=== PATIENT | male | born 1940 | race African-American/Black ===

== ENCOUNTER 2016-04-15 08:06 | Day surgery (SDC) | payer MEDICARE ==
[2016-04-15] MEDS ORDERED: TETRACAINE 0.5% OD ONE (08:43)
--- NOTE | 2016-04-15 09:13 | Anesthesia Consultation ---
Anesthesia Consult and Med Hx Date of service: 04/15/16 - Airway Anesthetic Teeth Evaluation: Good (TOP IMPLANT?) ROM Head & Neck: Adequate Mental/Hyoid Distance: Adequate Mallampati Class: Class II Intubation Access Assessment: Probably Good - Pulmonary Exam CTA: Yes - Cardiac Exam Cardiac Exam: RRR - Pre-Operative Health Status ASA Pre-Surgery Classification: ASA3 Proposed Anesthetic Plan: MAC - Pulmonary Hx Smoking: No Hx Asthma: No Hx Sleep Apnea: No - Cardiovascular System Hx Hypertension: Yes (3-4 yrs) Hx Coronary Artery Disease: No - Central Nervous System Hx Seizures: No CVA: No Hx Psychiatric Problems: No - Gastrointestinal Hx Gastroesophageal Reflux Disease: Yes - Endocrine Hx Renal Disease: No Hx Liver Disease: No Hx Insulin Dependent Diabetes: No Hx Non-Insulin Dependent Diabetes: Yes - Other Systems Hx Cancer: No
--- NOTE | 2016-04-15 09:13 | Anesthesia Day of Surgery ---
Anesthesia Day of Surgery - Day of Surgery Patient Examined: Yes Patient H&P Reviewed: Yes Patient is NPO: Yes
[2016-04-15] MEDS: VIGAMOX OD SCH ×3 (09:43→09:58)
[2016-04-15] MEDS ORDERED: mitoMYcin 0.02% Opth Soln *OR USE ONLY OP NR (10:00)
[2016-04-15] MEDS ORDERED: WATER FOR IRRIG STERILE IR ONE (11:48)
[2016-04-15] MEDS ORDERED: mitoMYcin 0.02% Opth Soln *OR USE ONLY OP ONE (11:48)
[2016-04-15] MEDS ORDERED: PROSHIELD COLLAGEN CORNEAL SHIELD TP ONE (11:48)
[2016-04-15] MEDS ORDERED: XYLOCAINE 1%/ EPI 1:100,000 INFILTRATI ONE (11:48)
[2016-04-15] MEDS ORDERED: SUBLIMAZE ONE (11:51)
[2016-04-15] MEDS ORDERED: VERSED ONE (11:52)
--- NOTE | 2016-04-15 12:26 | Operative Report ---
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 The risks, benefits and alternatives of cataract surgery were explained to the patient who after confirmining understanding elected to proceed with surgery. The risks discussed included but were not limited to retinal detachement, infection, problems with the natural or artificial lens leading to further surgery, loss of vision, loss of the eye. The patient had multiple opportunities to ask questions and have them answered. A preoperative instruction sheet was provided and explained to the patient and/or family. PROGNOSIS: Excellent INDICATIONS FOR SURGERY: Distortion of vision from the lesion. Without treatment , permanent visual loss is expected. OPERATIVE REPORT: The patient was taken into the preoperative area and then sedated and monitored by Anesthesia. The patient was prepped by applying a Betadine scrub to the periorbital area, the adjacent cheek, and the forehead. The prepped areas were dried with sterile gauze. The patient was draped, and a speculum was placed between the eyelids. 2% lidocaine was injected below the harlan of the pterygium. A cut-down was made through the body of the pterygium to bare sclera. The dissection was then carried towards the limbus, elevating up the pterygium. Moderate bleeding was encountered and treated with cautery. Once the dissection was taken to the limbus, the head of the pterygium was dissected off the cornea with a Tooke knife. The pterygium was densely scarred into the underlying stroma, making the dissection process difficult to perform. A superficial dissection plane was made in a few areas. The mass of fibrous growth was then excised from the limbus. A barbra bur on a high-speed drill was used to smooth the area of the cornea where the pterygium was removed. This was done in order to leave the tissue smooth and minimize the chance of recurrence. A rough limbal surface increases the risks of irritation, inflammation, and the possibility of postoperative recurrence in the eye. The limbal area was smoothed with the barbra bur, and care was taken not to remove too much tissue, leaving the cornea ectatic. After the scar tissue was removed, Mitomycin-C was painted on the eye with Weck- marvin sponges and immediately irrigated off after 60secs. The irrigation was done liberally to prevent any Mitomycin-C contamination to the rest of the field and the eye. The cornea was irrigated with balanced salt solution. Once the pterygium was excised and the cornea smoothed, cautery was used to control any bleeding in the bed of bare sclera. The peripheral edges of remaining conjunctiva around the bare sclera had its edges undermined slightly to allow it to be fixed to the underlying sclera when the tissue adhesive would be applied. Calipers were then used to measure the width and length of the area of bare sclera. After marking the tips of the calipers, they were used to dajuan the amniotic graft. Scissors were next used to first undermine and then excise the graft. Fine-tooth forceps were used carefully to elevate the graft and moved to the area of the bare sclera. It was moved carefully to make sure that first of all the epithelial side remained upward . After the graft was found to be suitable for the area to be covered, it was temporarily moved off the bare sclera and Tisseel tissue adhesive was applied in its two components as separate stages over the area of bare sclera. The graft was placed back in position and its edges were first pushed down 360 to allow firm fixation. The central area was also pushed down with firm pressure from a flat surfaced instrument. Next the edges of the previously undermined adjacent conjunctiva were pushed down to allow firm fixation. The flap was allowed to stay unmanipulated for ten minutes prior to removing the lid speculum. MEDICATIONS APPLIED AT END OF SURGERY: TobraDex ointment was placed onto the eye fallowed by the application of a bandage contact lens. DISCHARGE SUMMARY: The patient was released in stable condition. The patient and those with the patient were given a written sheet of postoperative instructions and counseling on any abnormal laboratory studies. They are to call immediately for difficulties.
--- NOTE | 2016-04-15 12:27 | Short Stay Summary ---
Short Stay Documentation Date of service: 04/15/16 - History H&P: obtained from office - Allergies and Medications Current Medications: Allergies No Known Allergies Allergy (Verified 04/15/16 08:44) Home Medications Medication Instructions Recorded Confirmed Last Taken Type Amlodipine Besylate [Amlodipine 5 mg PO DAILY 04/13/16 04/13/16 Unknown History Besylate] Gabapentin [Gabapentin] 300 mg PO PRN PRN 04/13/16 04/13/16 Unknown History Lisinopril/Hydrochlorothiazide 1 tab PO QDAY 04/13/16 04/13/16 Unknown History [Zestoretic 20-25 mg] Metformin HCl [Metformin HCl] 850 mg PO PRN PRN 04/13/16 04/15/16 2 Days Ago History Omeprazole (Nf) [PriLOSEC (Nf)] 20 mg PO DAILY 04/13/16 04/13/16 Unknown History Active Medications Moxifloxacin HCl (Vigamox) 1 drops OD Q5MIN LORRIE Stop: 04/17/16 09:01 Last Admin: 04/15/16 09:58 Dose: 1 drops Prednisolone Acetate (Pred Forte 1%) 1 drops OD QID LORRIE - Brief post op/procedure progress note Date of procedure: 04/15/16 Pre-op diagnosis: pterygium right eye Post-op diagnosis: same Procedure: Pterygium surgery right eye Anesthesia: MAC Surgeon: YESICA MIRANDA Estimated blood loss: none Pathology: none Condition: stable - Disposition Condition at discharge: Good Disposition: DISCHARGED TO HOME OR SELFCARE - Discharge Diagnoses (1) Pterygium of right eye Status: Resolved Short Stay Discharge Plan Follow up with: SUJATA MANJARREZ MD [Primary Care Provider] - 7 Days
[2016-04-15 12:53] VITALS: BP 155/73
--- NOTE | 2016-04-15 13:57 | Post Anesthesia Evaluation ---
- Post Anesthesia Evaluation Patient Participated: Yes Airway Patent: Yes Stable Respiratory Function: Yes Nausea/Vomiting: No Temp > 96.8F: Yes Pain Manageable: Yes Adequeate Hydration: Yes Anesthesia Complications: No Block Receding Appropriately: Not Applicable Patient on Ventilator: No
[2016-04-15] MEDS ORDERED: PRED FORTE 1% OD SCH (14:00)
--- NOTE | 2016-04-15 23:54 | Admit Criteria Form ---
Admission Criteria Documentation: AMBULATORY SURGERY EXCEPTION CRITERIA Ambulatory Surgery Exception Criteria ( Place 'X' for any and all applicable criteria): Surgery or procedure performed on ambulatory basis may require inpatient stay for[A] ANY ONE of the following(1)(2)(3)(4)(5)(6)(7)(8)(9): [X] I. A preoperative situation, condition, or finding that warrants inpatient stay as indicated by ANY ONE of the following: [] a) Inpatient care needed because of severity of a disease or condition rather than the surgery (eg, severe cardiac or respiratory disease, severe infection) (15) (16 ) (17) (18) [] b) Emergent procedure (eg, angioplasty for acute ischemia)(19) [] c) Complex surgical approach or situation as indicated by ANY ONE of the following(3): [] i) Open approach needed instead of usual endoscopic, transcatheter, or other less invasive procedure [] ii) Difficult approach because of previous operation [] iii) Airway monitoring required after open neck procedures(20)(21) [] iv) Large mass requiring unusually extensive dissection [] v) Additional complicating feature requiring inpatient care (eg, drain management)(22(23): [X] d) Major surgery in a pt with high anesthetic risk as indicated by ANY ONE of the following (2)(3)(5)(7)(8): [X] i) ASA risk class III or higher (severe systemic disease impairing function) [D] [] ii) Advanced age (eg, older than 85 years)(14)(24) [] iii) Symptomatic heart failure(25) [] iv) Symptomatic asthma or COPD(8)(21) [] v) Morbid obesity with hemodynamic or respiratory problems(20)( 21)(26)(27) [] vi) Obstructive sleep apnea(20)(21) [] vii) Former premature infants who are younger than 60 weeks [] viii) High risk for severe postoperative abnormalities (eg, severe postoperative hypocalcemia after parathyroidectomy for severe hyperparathyroidism)(27)( 28) [] ix) Unstable angina(25) [] e) Drug-related risk requiring inpatient stay as indicated by ANY ONE of the following(5)(10)(14)(32)(33) [] i) Procedure requires discontinuing drugs or other therapy (eg , antiarrhythmic medication, antiseizure medication), which necessitates inpatient observation or treatment.(18)(31) [] ii) Major surgery and high risk drug use as indicated by ANY ONE of the following: [] 1) Active abuse of cocaine or similar drug [] 2) Monoamine oxidase inhibitor use [] 3) Other drug identified as posing risk [] f) Inadequate outpatient care situation as indicated by ANY ONE of the following(5)(10)(14)(32)(33) [] i) Patient lives remote from medical facility and procedure has urgent complication potential, and temporary nearby residence cannot be arranged [] ii) Patient will have postprocedure incapacitation and inadequate assistance at home, or alternative level of care cannot be arranged. [] iii) Patient will have long general anesthesia or procedure side effect resolution time, and competent person to stay with patient on first postoperative night at home or alternative level of care cannot be arranged. []iv) Other inadequate outpatient situation that cannot be handled by other means [] II. A perioperative event, condition, or finding that warrants inpatient stay as indicated by ANY ONE of the following (1)(2)(3): [] a) Inadequate physiologic recovery: cardiovascular, respiratory, or hemodynamic status not normal or near preoperative baseline(18) [] b) Hemodynamic instability [] c) Patient not alert with near normal or baseline mental status [] d) Temperature not normal or as expected and not appropriate for outpatient treatment of condition [] e) Ambulatory or appropriate activity level status not yet achieved post procedure [E](34)(35)(36) [] f) Operative site not appropriate (eg, unexpected or excessive drainage or bleeding) [] g) Postoperative effects not resolved or adequately managed (eg, significant pain or vomiting not appropriate for outpatient or next level of care)(10)(12) [] h) Complicating features requiring inpatient care as indicated by ANY ONE of the following(37): [] i) Severe complications of procedure (eg, bowel injury, airway compromise, vascular injury,severe hemorrhage) [] ii) Extensive (eg, dissection far beyond usual scope of procedure ) or prolonged (eg, 120 minutes beyond usual) surgery needed requiring inpatient postoperative care [] iii) Conversion to an open or complex procedure that requires inpatient care (eg, open vs laparoscopic cholecystectomy, abdominal vs vaginal hysterectomy)(38) [] iv) Comorbid condition or test result identified during or post procedure that requires inpatient care (7) [] v) Malignant hyperthermia(30) [] vi) Other complicating feature requiring inpatient care(22)(23) Inpatient stay may be needed until ALL of the following are present (1)(2)(3)(4) (5)(6)(10)(14)(33)(40): []a) Physiologic recovery: cardiovascular, respiratory, and hemodynamic status normal or near preoperative baseline []b) Hemodynamic stability []c) Patient alert, with near normal or baseline mental status []d) Temperature appropriate: patient afebrile or temperature appropriate for outpt treatment of condition []e) Activity level appropriate: ambulatory or appropriate activity level post procedure []f) Operative site appropriate as indicated by ALL of the following: []i) Site dry or with expected drainage []ii) Any blood noted is as expected for procedure. []g) Postoperative effects resolved or managed as indicated by ALL of the following: []i) Pain management appropriate for outpatient (or next level of) care(10) []ii) Minimal nausea and vomiting: if present, successfully treated with oral medication(12) []iii) Headache, dizziness, or drowsiness (if present) are mild. []h) Voiding status acceptable as indicated by ANY ONE of the following: []i) Voiding spontaneously []ii) No voiding but instructions given for follow-up in 6 to 8 hours []iii) Urinary catheter in place, and instructions given for follow-up []i) Complicating features requiring inpatient care manageable at a lower level of care(37) []j) Comorbid conditions manageable at a lower level of care(37) The original [employer] content created by [employer] has been revised. The portions of the content which have been revised are identified through the use of italic text or in bold, and [facility] [employer] has neither reviewed nor approved the modified material. All other unmodified content is copyright [employer]. Please see references footnoted in the original [employer] edition 2016 Admission Criteria Met: Yes
== END 2016-04-15 12:56 | disposition home or self-care (01) ==
LOC: OR 08:06
DX: H11.001 Unspecified pterygium of right eye (principal); E11.9 Type 2 diabetes mellitus without complications; I10 Essential (primary) hypertension; K21.9 Gastro-esophageal reflux disease without esophagitis; Z79.899 Other long term (current) drug therapy
CPT/HCPCS: 65426; 82962; 88304; C9250; J2250; J3010; J7315; V2790

== ENCOUNTER 2016-06-03 07:03 | Day surgery (SDC) | payer MEDICARE ==
[~2016-06-03 07:03] MED LIST: TETRACAINE 0.5% OD PRN
--- NOTE | 2016-06-03 08:02 | Anesthesia Consultation ---
Anesthesia Consult and Med Hx Date of service: 06/03/16 - Airway Anesthetic Teeth Evaluation: Dentures (uppper permanent) ROM Head & Neck: Adequate Mental/Hyoid Distance: Adequate Mallampati Class: Class II Intubation Access Assessment: Probably Good - Pulmonary Exam CTA: Yes - Cardiac Exam Cardiac Exam: RRR - Pre-Operative Health Status ASA Pre-Surgery Classification: ASA3 Proposed Anesthetic Plan: MAC - Pre-Anesthesia Comment Pre-Anesthesia Comments: [place]i speaker - Pulmonary Hx Smoking: No Hx Asthma: No - Cardiovascular System Hx Hypertension: Yes (3-4 yrs) Hx Heart Attack/AMI: No - Central Nervous System Hx Neuromuscular Disorder: Yes (arthritis) Hx Seizures: No CVA: No Hx Psychiatric Problems: No - Gastrointestinal Hx Gastroesophageal Reflux Disease: Yes - Endocrine Hx Renal Disease: No Hx Liver Disease: No Hx Non-Insulin Dependent Diabetes: Yes - Other Systems Hx Cancer: No Hx Obesity: No - Additional Comments Anesthesia Medical History Comments: NAC
--- NOTE | 2016-06-03 08:02 | Anesthesia Day of Surgery ---
Anesthesia Day of Surgery - Day of Surgery Patient Examined: Yes Patient H&P Reviewed: Yes Patient is NPO: Yes
[2016-06-03] MEDS: AK-Dilate OD SCH ×3 (08:15→08:25)
[2016-06-03] MEDS: MYDRIACYL OD SCH ×3 (08:15→08:25)
[2016-06-03] MEDS: VIGAMOX OD SCH ×3 (08:15→08:25)
[2016-06-03] MEDS ORDERED: VERSED ONE (08:39)
[2016-06-03] MEDS ORDERED: SUBLIMAZE ONE (08:39)
--- NOTE | 2016-06-03 09:33 | Operative Report ---
Operative Report Operative Report: PATIENT'S NAME: DATE OF : DATE OF SURGERY: 06/03/2016 PREOPERATIVE DIAGNOSIS: Cataract right `eye POSTOPERATIVE DIAGNOSIS: Same OPERATIVE PROCEDURE: Phacoemulsification with intraocular lens implantation, right eye SURGEON: Jennie Nevarez M.D. IMPROVEMENT SPECIALIST SURGEON: Tone Lens: [id number] 21.5 D ANESTHESIA: Monitored anesthesia care in combination with topical and intracameral anesthesia because of the established specific risk of reflux, arrhythmias, or anxiety attacks associated with ocular manipulation, as well as the difficulty of the dental financial coordinator to manage such potentially catastrophic events while simultaneously attempting to complete the surgical procedure and was deemed necessary for the patient's safety to have an Heel Seat Flap Stapler present during the procedure whenever possible. An Heel Seat Flap Stapler was utilized to regulate the intravenous sedation of the patient so the patient was cooperative yet not asleep in order for the patient to successfully maintain fixation of the eye on the operating light of the microscope. COMPLICATIONS: No surgical complications No blood loss. ALLERGIES: No known drug allergies PROGNOSIS: Excellent INDICATIONS FOR SURGERY: The patient is undergoing surgery in the hopes of eliminating or improving these visual difficulties. PROCEDURE: After arriving at the surgery center, the patient was given topical anesthetic and dilating drops, as noted in the record. The patient was then taken into the operating room and given more anesthetic drops. The eyelids , lashes, and lid margins were scrubbed with Betadine solution, and the patient was draped. The Nurse Heel Seat Flap Stapler administered IV sedation and monitored the patient during the procedure. The eye was then fixated with a 0.12, and a stab incision was made in the peripheral clear cornea into the anterior chamber. This was made on my left side. Viscoelastic was next used to fill the anterior chamber. The eye was once again fixated with the 0.12 forceps and a keratome was used make an incision in clear cornea peripherally on my right hand side temporally. The capsule forceps were used to open the central anterior capsule and then make a continuous round capsulotomy. Hydrodissection was carried out utilizing a cannula and balanced salt solution to delineate the cortical material from the capsule and the nucleus from the cortical material. The phaco tip was introduced into the eye and used to remove the anterior cortical material in the area of the capsulotomy. Then the phaco tip was buried into the nucleus, and a chopping instrument was introduced into the eye and used to provide countertraction in the nucleus between this instrument and the phaco tip fracturing the nucleus. This procedure was repeated multiple times, providing multiple small segments of the lens, and then the phaco tip was used to remove each of these segments. An I/A tip was then used to remove the remaining cortex. The anterior chamber was refilled with viscoelastic. An one-piece, acrylic intraocular lens was then placed into an inserting cartridge. The tip of the inserting cartridge was introduced into the keratome incision and into the anterior chamber. The implant was gently advanced through the cartridge and into the eye, where it unfolded, and both haptics were placed in the capsular bag, where it centered nicely and appeared to be well fixated. After placement of the intraocular lens, the I~and~A handpiece was placed back into the eye and used to remove the viscoelastic, including viscoelastic that was behind the optic of the intraocular lens. The anterior chamber was then filled with balanced salt solution, and hydration of the wound was used to cause swelling of the wound and more appropriate watertight closure. When the wound was found to be firm, the patient was asked to comment on how bright the light was. If there was no light perception at all or if the light was substantially dimmer than during the rest of the surgery, the amount of fluid in the eye was decompressed to lower the intraocular pressure until the patient could see the bright light again. This was done to avoid any damage or decreased blood flow to the optic nerve. MEDICATIONS APPLIED AT END OF SURGERY: One drop of Pred Forte and Vigamox The patient was given a shield to wear at night and was instructed not to rub or push on the eye. DISCHARGE SUMMARY: The patient was released in stable condition. The patient and those with the patient were given a written sheet of postoperative instructions and counseling on any abnormal laboratory studies. The patient is to see us tomorrow for follow-up in the office and is to call immediately for any difficulties. Jennie Nevarez M.D. Date
--- NOTE | 2016-06-03 09:34 | Short Stay Summary ---
Short Stay Documentation Date of service: 06/03/16 - History H&P: obtained from office - Allergies and Medications Current Medications: Allergies No Known Allergies Allergy (Verified 06/02/16 09:40) Home Medications Medication Instructions Recorded Confirmed Last Taken Type Amlodipine Besylate [Amlodipine 5 mg PO DAILY 04/13/16 06/02/16 Unknown History Besylate] Gabapentin [Gabapentin] 300 mg PO PRN PRN 04/13/16 06/02/16 Unknown History Lisinopril/Hydrochlorothiazide 1 tab PO QDAY 04/13/16 06/02/16 Unknown History [Zestoretic 20-25 mg] Metformin HCl [Metformin HCl] 850 mg PO PRN PRN 04/13/16 06/02/16 2 Days Ago History Omeprazole (Nf) [PriLOSEC (Nf)] 20 mg PO DAILY 04/13/16 06/02/16 Unknown History Active Medications Moxifloxacin HCl (Vigamox) 1 drops OD Q5MIN LORRIE Stop: 06/03/16 18:01 Last Admin: 06/03/16 08:25 Dose: 1 drops Phenylephrine HCl (Ak-Dilate) 1 drops OD Q5MIN LORRIE Stop: 06/03/16 18:01 Last Admin: 06/03/16 08:25 Dose: 1 drops Prednisolone Acetate (Pred Forte 1%) 1 drops OD QID NR Stop: 06/03/16 13:59 Tetracaine HCl (Tetracaine 0.5%) 1 drops OD Q5M PRN PRN Reason: Analgesia Stop: 06/03/16 18:01 Last Admin: 06/03/16 08:15 Dose: 1 drops Tropicamide (Mydriacyl) 1 drops OD Q5MIN LORRIE Stop: 06/03/16 18:01 Last Admin: 06/03/16 08:25 Dose: 1 drops - Brief post op/procedure progress note Date of procedure: 06/03/16 Pre-op diagnosis: right cataract Post-op diagnosis: same Procedure: Phacoemulsification with intraocular lens insertion right eye Anesthesia: MAC Surgeon: YESICA MIRANDA Estimated blood loss: none Pathology: none Condition: stable - Disposition Condition at discharge: Good Disposition: DISCHARGED TO HOME OR SELFCARE - Discharge Diagnoses (1) Cataract Status: Resolved Short Stay Discharge Plan Follow up with: SUJATA MANJARREZ MD [Primary Care Provider] - 7 Days
[2016-06-03] MEDS ORDERED: PRED FORTE 1% OD NR (10:00)
[2016-06-03 10:03] VITALS: BP 167/92
== END 2016-06-03 10:23 | disposition home or self-care (01) ==
LOC: OR 07:03
DX: E11.36 Type 2 diabetes mellitus with diabetic cataract (principal); I10 Essential (primary) hypertension; M19.90 Unspecified osteoarthritis, unspecified site; K21.9 Gastro-esophageal reflux disease without esophagitis; Z79.899 Other long term (current) drug therapy
CPT/HCPCS: 66984; 82962; J2250; J3010; V2632

== ENCOUNTER 2016-07-01 07:41 | Day surgery (SDC) | payer MEDICARE ==
[~2016-07-01 07:41] MED LIST changes: -TETRACAINE 0.5% OD PRN; +TETRACAINE 0.5% OS PRN
--- NOTE | 2016-07-01 08:34 | Anesthesia Consultation ---
Anesthesia Consult and Med Hx Date of service: 07/01/16 - Airway Anesthetic Teeth Evaluation: Dentures (permanent ) ROM Head & Neck: Adequate Mental/Hyoid Distance: Adequate Mallampati Class: Class II Intubation Access Assessment: Probably Good - Pulmonary Exam CTA: Yes - Cardiac Exam Cardiac Exam: RRR - Pre-Operative Health Status ASA Pre-Surgery Classification: ASA3 Proposed Anesthetic Plan: MAC - Cardiovascular System Hx Hypertension: Yes (3-4 yrs) - Central Nervous System Hx Neuromuscular Disorder: Yes (arthritis) - Gastrointestinal Hx Gastroesophageal Reflux Disease: Yes - Endocrine Hx Non-Insulin Dependent Diabetes: Yes
--- NOTE | 2016-07-01 08:35 | Anesthesia Day of Surgery ---
Anesthesia Day of Surgery - Day of Surgery Patient Examined: Yes Patient H&P Reviewed: Yes Patient is NPO: Yes
[2016-07-01] MEDS: MYDRIACYL OS SCH ×3 (09:00→09:10)
[2016-07-01] MEDS: AK-Dilate OS SCH ×3 (09:00→09:10)
[2016-07-01] MEDS: VIGAMOX OS SCH ×3 (09:00→09:10)
[2016-07-01] MEDS ORDERED: SUBLIMAZE ONE (09:45)
[2016-07-01] MEDS ORDERED: VERSED ONE (09:46)
--- NOTE | 2016-07-01 10:19 | Operative Report ---
Operative Report Operative Report: PATIENT'S NAME: DATE OF : DATE OF SURGERY: 07/01/2016 PREOPERATIVE DIAGNOSIS: Cataract left eye POSTOPERATIVE DIAGNOSIS: Same OPERATIVE PROCEDURE: Phacoemulsification with intraocular lens implantation, left eye SURGEON: Jennie Nevarez M.D. CERTIFIED MEDICAL CODER SURGEON: Tone Lens: [id number] 22.5 D ANESTHESIA: Monitored anesthesia care in combination with topical and intracameral anesthesia because of the established specific risk of reflux, arrhythmias, or anxiety attacks associated with ocular manipulation, as well as the difficulty of the light technician to manage such potentially catastrophic events while simultaneously attempting to complete the surgical procedure and was deemed necessary for the patient's safety to have an Director Of Federal Sales present during the procedure whenever possible. An Director Of Federal Sales was utilized to regulate the intravenous sedation of the patient so the patient was cooperative yet not asleep in order for the patient to successfully maintain fixation of the eye on the operating light of the microscope. COMPLICATIONS: No surgical complications No blood loss. ALLERGIES: No known drug allergies PROGNOSIS: Excellent INDICATIONS FOR SURGERY: The patient is undergoing surgery in the hopes of eliminating or improving these visual difficulties. PROCEDURE: After arriving at the surgery center, the patient was given topical anesthetic and dilating drops, as noted in the record. The patient was then taken into the operating room and given more anesthetic drops. The eyelids , lashes, and lid margins were scrubbed with Betadine solution, and the patient was draped. The Nurse Director Of Federal Sales administered IV sedation and monitored the patient during the procedure. The eye was then fixated with a 0.12, and a stab incision was made in the peripheral clear cornea into the anterior chamber. This was made on my left side. Viscoelastic was next used to fill the anterior chamber. The eye was once again fixated with the 0.12 forceps and a keratome was used make an incision in clear cornea peripherally on my right hand side temporally. The capsule forceps were used to open the central anterior capsule and then make a continuous round capsulotomy. Hydrodissection was carried out utilizing a cannula and balanced salt solution to delineate the cortical material from the capsule and the nucleus from the cortical material. The phaco tip was introduced into the eye and used to remove the anterior cortical material in the area of the capsulotomy. Then the phaco tip was buried into the nucleus, and a chopping instrument was introduced into the eye and used to provide countertraction in the nucleus between this instrument and the phaco tip fracturing the nucleus. This procedure was repeated multiple times, providing multiple small segments of the lens, and then the phaco tip was used to remove each of these segments. An I/A tip was then used to remove the remaining cortex. The anterior chamber was refilled with viscoelastic. An one-piece, acrylic intraocular lens was then placed into an inserting cartridge. The tip of the inserting cartridge was introduced into the keratome incision and into the anterior chamber. The implant was gently advanced through the cartridge and into the eye, where it unfolded, and both haptics were placed in the capsular bag, where it centered nicely and appeared to be well fixated. After placement of the intraocular lens, the I~and~A handpiece was placed back into the eye and used to remove the viscoelastic, including viscoelastic that was behind the optic of the intraocular lens. The anterior chamber was then filled with balanced salt solution, and hydration of the wound was used to cause swelling of the wound and more appropriate watertight closure. When the wound was found to be firm, the patient was asked to comment on how bright the light was. If there was no light perception at all or if the light was substantially dimmer than during the rest of the surgery, the amount of fluid in the eye was decompressed to lower the intraocular pressure until the patient could see the bright light again. This was done to avoid any damage or decreased blood flow to the optic nerve. MEDICATIONS APPLIED AT END OF SURGERY: One drop of Pred Forte and Vigamox The patient was given a shield to wear at night and was instructed not to rub or push on the eye. DISCHARGE SUMMARY: The patient was released in stable condition. The patient and those with the patient were given a written sheet of postoperative instructions and counseling on any abnormal laboratory studies. The patient is to see us tomorrow for follow-up in the office and is to call immediately for any difficulties. Jennie Nevarez M.D. Date
--- NOTE | 2016-07-01 10:20 | Short Stay Summary ---
Short Stay Documentation Date of service: 07/01/16 - History H&P: obtained from office - Allergies and Medications Current Medications: Allergies No Known Allergies Allergy (Verified 06/29/16 17:48) Home Medications Medication Instructions Recorded Confirmed Last Taken Type Amlodipine Besylate [Amlodipine 5 mg PO DAILY 04/13/16 06/29/16 06/01/16 History Besylate] Gabapentin [Gabapentin] 300 mg PO PRN PRN 04/13/16 06/29/16 Unknown History Lisinopril/Hydrochlorothiazide 1 tab PO QDAY 04/13/16 06/29/16 06/01/16 History [Zestoretic 20-25 mg] Metformin HCl [Metformin HCl] 850 mg PO PRN PRN 04/13/16 06/29/16 2 Days Ago History Omeprazole (Nf) [PriLOSEC (Nf)] 20 mg PO DAILY 04/13/16 06/29/16 Unknown History Active Medications Moxifloxacin HCl (Vigamox) 1 drops OS Q5MIN LORRIE Stop: 07/01/16 23:59 Last Admin: 07/01/16 09:10 Dose: 1 drops Phenylephrine HCl (Ak-Dilate) 1 drops OS Q5MIN LORRIE Stop: 07/01/16 23:59 Last Admin: 07/01/16 09:10 Dose: 1 drops Prednisolone Acetate (Pred Forte 1%) 1 drops OS QID LORRIE Tetracaine HCl (Tetracaine 0.5%) 1 drops OS Q5M PRN PRN Reason: Analgesia Stop: 07/01/16 23:59 Last Admin: 07/01/16 09:00 Dose: 1 drops Tropicamide (Mydriacyl) 1 drops OS Q5MIN LORRIE Stop: 07/01/16 23:59 Last Admin: 07/01/16 09:10 Dose: 1 drops - Brief post op/procedure progress note Date of procedure: 07/01/16 Pre-op diagnosis: cataract left eye Post-op diagnosis: same Procedure: Phacoemulsification with intraocular lens insertion left eye Anesthesia: MAC Surgeon: YESICA MIRANDA Estimated blood loss: none Pathology: none Condition: stable - Disposition Condition at discharge: Good Disposition: DISCHARGED TO HOME OR SELFCARE - Discharge Diagnoses (1) Cataract Status: Resolved Qualifiers: Cataract type: age-related Age-related cataract type: nuclear Infantile/ juvenile cataract type: I Traumatic cataract type: T Complicated cataract type: C Secondary cataract type: S Laterality: left Qualified Code(s): H25.12 - Age-related nuclear cataract, left eye Short Stay Discharge Plan Follow up with: SUJATA MANJARREZ MD [Primary Care Provider] - 7 Days
[2016-07-01 10:57] VITALS: BP 138/88
[2016-07-01] MEDS ORDERED: PRED FORTE 1% ONE (12:10)
[2016-07-01] MEDS ORDERED: PRED FORTE 1% OS SCH (14:00)
== END 2016-07-01 10:05 | disposition home or self-care (01) ==
LOC: OR 07:41
DX: E11.36 Type 2 diabetes mellitus with diabetic cataract (principal); I10 Essential (primary) hypertension; M19.90 Unspecified osteoarthritis, unspecified site; K21.9 Gastro-esophageal reflux disease without esophagitis; Z79.899 Other long term (current) drug therapy; Z79.84 Long term (current) use of oral hypoglycemic drugs
CPT/HCPCS: 66984; 82962; J2250; J3010; V2632

== ENCOUNTER 2017-03-19 15:29 | Emergency (ER) | payer MEDICARE ==
[2017-03-19 16:21] LABS: Bilirubin,Urine NEG (Negative); Blood,Urine SM (Negative); Color,Urine Yellow (Yellow); Mucus,Urine FEW /HPF; Nitrite,Urine NEG (Negative); Protein,Urine <15 mg/dL mg/dL (Negative); Urobilinogen,Urine < 2.0 mg/dL (<2.0)
[2017-03-19 16:28] LABS: Basophils % (Auto) 0.4 % (0.0-1.8); Eosinophils # (Auto) 0.1 K/mm3 (0.0-0.4); Eosinophils % (Auto) 1.2 % (0.0-4.3); Hematocrit 39.5 % (35.5-45.6); Hemoglobin 13.3 gm/dl (11.8-15.2); Lymphocytes # (Auto) 1.2 K/mm3 (1.2-5.4); Lymphocytes % (Auto) 17.9 % (13.4-35.0); Mean Corpuscular HGB Conc 34 % (32-34); Mean Corpuscular Hemoglobin 32 pg (28-32); Mean Corpuscular Volume 94 fl (84-94); Monocytes # (Auto) 1.1 K/mm3 (0.0-0.8); Platelet Count 362 K/mm3 (140-440); Red Blood Count 4.21 M/mm3 (3.65-5.03); Red Cell Distribution Width 13.7 % (13.2-15.2)
[2017-03-19 16:40] LABS: Alanine Aminotransferase 7 units/L (7-56); Albumin 3.8 g/dL (3.9-5); BUN/Creatinine Ratio 20; Blood Urea Nitrogen 18 mg/dL (9-20); Calcium 8.4 mg/dL (8.4-10.2); Hemolysis Index 8
--- NOTE | 2017-03-19 22:53 | Emergency Department Report ---
ED Male HPI - General Chief complaint: Urogenital-Male Stated complaint: URINE RETENTION Time Seen by Provider: 03/19/17 22:03 Source: patient Mode of arrival: Ambulatory Limitations: No Limitations - History of Present Illness Initial comments: Since 3am he reports that he cannot urinate on his own, no previous history of this happening, history limited since patient does not speak Gren[place], family member states that he may have had a headache, some abdominal pain. MD Complaint: other (urinary retention) -: days(s) (1) Time: 03:00 Location: abdomen (suprapubic) Radiation: none Severity: severe Quality: other (fullness) Improves with: none Worsens with: none denies other symptoms - Related Data Home Medications Medication Instructions Recorded Confirmed Last Taken Amlodipine Besylate [Amlodipine 5 mg PO DAILY 04/13/16 03/19/17 06/30/16 Besylate] Lisinopril/Hydrochlorothiazide 1 tab PO QDAY 04/13/16 03/19/17 06/30/16 [Zestoretic 20-25 mg] Metformin HCl [Metformin HCl] 850 mg PO BID 04/13/16 03/19/17 06/30/16 Omeprazole (Nf) [PriLOSEC (Nf)] 20 mg PO DAILY 04/13/16 03/19/17 06/30/16 Cyclobenzaprine [Flexeril] 10 mg PO QHS 03/19/17 03/19/17 Unknown Tamsulosin [Flomax] 0.4 mg PO QDAY 03/19/17 03/19/17 Unknown traMADol [Ultram] 50 mg PO Q8H PRN 03/19/17 03/19/17 Unknown Previous Rx's Medication Instructions Recorded Last Taken Type Ciprofloxacin HCl [Cipro] 500 mg PO BID #6 tablet 03/20/17 Unknown Rx Allergies Allergy/AdvReac Type Severity Reaction Status Date / Time No Known Allergies Allergy Verified 06/29/16 17:48 ED Review of Systems ROS: Stated complaint: URINE RETENTION Other details as noted in HPI Comment: Unobtainable due to pts medical conditions (limited due to language but family state that he doesn't seem to have any other issues at this time.) ED Past Medical Hx - Past Medical History Hx Hypertension: Yes (3-4 yrs) Hx Diabetes: Yes ("prediabetic") Hx GERD: Yes Hx HIV: No - Surgical History Past Surgical History?: No - Social History Smoking Status: Never Smoker Substance Use Type: None - Medications Home Medications: Home Medications Medication Instructions Recorded Confirmed Last Taken Type Amlodipine Besylate [Amlodipine 5 mg PO DAILY 04/13/16 03/19/17 06/30/16 History Besylate] Lisinopril/Hydrochlorothiazide 1 tab PO QDAY 04/13/16 03/19/17 06/30/16 History [Zestoretic 20-25 mg] Metformin HCl [Metformin HCl] 850 mg PO BID 04/13/16 03/19/17 06/30/16 History Omeprazole (Nf) [PriLOSEC (Nf)] 20 mg PO DAILY 04/13/16 03/19/17 06/30/16 History Cyclobenzaprine [Flexeril] 10 mg PO QHS 03/19/17 03/19/17 Unknown History Tamsulosin [Flomax] 0.4 mg PO QDAY 03/19/17 03/19/17 Unknown History traMADol [Ultram] 50 mg PO Q8H PRN 03/19/17 03/19/17 Unknown History Ciprofloxacin HCl [Cipro] 500 mg PO BID #6 tablet 03/20/17 Unknown Rx ED Physical Exam - General Limitations: No Limitations, Language Barrier General appearance: alert, in no apparent distress - Head Head exam: Present: atraumatic, normocephalic - Eye Eye exam: Present: normal appearance, PERRL, EOMI - ENT ENT exam: Present: normal exam, normal orophraynx - Neck Neck exam: Present: normal inspection - Respiratory Respiratory exam: Present: normal lung sounds bilaterally. Absent: respiratory distress, wheezes, rales, rhonchi - Cardiovascular Cardiovascular Exam: Present: regular rate, normal rhythm, normal heart sounds - GI/Abdominal GI/Abdominal exam: Present: soft - Extremities Exam Extremities exam: Present: normal inspection, full ROM - Back Exam Back exam: Present: normal inspection, full ROM - Neurological Exam Neurological exam: Present: alert, oriented X3, CN II-XII intact - Psychiatric Psychiatric exam: Present: normal affect, normal mood - Skin Skin exam: Present: warm, dry, intact ED Course Vital Signs 03/19/17 03/19/17 03/19/17 15:53 20:00 20:30 Temperature 98 F Pulse Rate 100 H 109 H 111 H Respiratory 16 21 22 Rate Blood Pressure 146/80 140/81 Blood Pressure 128/53 [Left] O2 Sat by Pulse 97 96 Oximetry 03/19/17 03/19/17 03/19/17 20:55 21:00 21:15 Temperature 100.6 F H Pulse Rate 120 H 108 H Respiratory 20 18 18 Rate Blood Pressure 139/80 Blood Pressure 140/81 [Left] O2 Sat by Pulse 97 94 97 Oximetry 03/19/17 03/19/17 03/19/17 21:30 22:00 22:30 Temperature Pulse Rate 108 H 112 H 109 H Respiratory 17 9 L 18 Rate Blood Pressure 148/83 155/84 139/80 Blood Pressure [Left] O2 Sat by Pulse 95 97 96 Oximetry 03/19/17 23:00 Temperature Pulse Rate 109 H Respiratory 17 Rate Blood Pressure 151/82 Blood Pressure [Left] O2 Sat by Pulse Oximetry - Reevaluation(s) Reevaluation #1: 03/19/17 23:15 We put a leg bag on the patient, nurse reports though that there are a lot of air bubbles present, no blood though, due to the language barrier, I feel we will need to get imaging studies. 03/20/17 01:05 No free air, but he does have some pulmonary nodules that are suspicious for a metastatic process. I tried to explain this to his relative who is still here, but there is a significant language barrier. Therefore, I explained I will print out his discharge and he should give this to his PMD. Relative understood this. Will discharge with leg bag in place. He has flomax Rx, advised to take it as well. Cipro will also be given here. ED Medical Decision Making - Lab Data Result diagrams: 03/19/17 16:05 03/19/17 16:05 Critical care attestation.: If time is entered above; I have spent that time in minutes in the direct care of this critically ill patient, excluding procedure time. ED Disposition Clinical Impression: Acute urinary retention, Pulmonary nodule Disposition: DC-01 TO HOME OR SELFCARE Is pt being admited?: No Does the pt Need Aspirin: No Condition: Stable Instructions: Urinary Retention in Men (ED) Additional Instructions: FOLLOW UP WITH YOUR PRIMARY CARE DOCTOR. YOU HAVE LUNG NODULES THAT ARE SUSPICIOUS FOR A METASTATIC PROCESS. PLEASE HAVE YOUR PMD OBTAIN THE CT SCAN FROM THIS HOSPITAL. RETURN NEEDED. Prescriptions: Ciprofloxacin HCl [Cipro] 500 mg PO BID #6 tablet Referrals: AMANDA PAGE MD [Primary Care Provider] - 3-5 Days
--- NOTE | 2017-03-20 00:23 | Cat Scan Report ---
FINAL REPORT PROCEDURE: CT ABDOMEN PELVIS WO CON TECHNIQUE: Computerized axial tomography of the abdomen and pelvis was performed without intravenous contrast. This study is performed without intravascular contrast material and its sensitivity for abdominal and pelvic pathology, including neoplasms, inflammation, abscess, free fluid, thrombosis, arterial dissection and infarction, is reduced compared with a contrast enhanced study. HISTORY: acute urinary retention, hematuria, pain COMPARISON: No prior studies are available for comparison. FINDINGS: Visualized lower thorax: There are pulmonary nodules at the lung bases suspicious for metastatic malignancy. There are infiltrates at the left lung base.. Liver: Normal size and attenuation. Spleen: Normal size and attenuation. Gallbladder and biliary system: Normal. Pancreas: Normal. Adrenals: Normal. Kidneys: There are no kidney stones or ureteral stones. There is no hydronephrosis.. GI tract: There is no bowel obstruction, colitis or enteritis. The appendix is normal.. Lymph nodes and mesentery: Normal. Vasculature: There is calcified plaque in the abdominal aorta. There is no aneurysm.. Bladder: There is a Lisa catheter in the urinary bladder.. Reproductive organs: Normal. Peritoneum: There is no ascites or free air, abscess or adenopathy.. Musculoskeletal structures: No significant abnormality. Other: None. IMPRESSION: There are pulmonary nodules at the lung bases suspicious for metastatic malignancy. There are infiltrates at the left lung base.. There are no kidney stones or ureteral stones. There is no hydronephrosis.. There is no bowel obstruction, colitis or enteritis. The appendix is normal.. There is a Lisa catheter in the urinary bladder.. There is no ascites or free air, abscess or adenopathy.. .
[2017-03-20 02:49] VITALS: BP 137/79
== END 2017-03-20 02:11 | disposition home or self-care (01) ==
LOC: ED 15:29
DX: R33.9 Retention of urine, unspecified (principal); R91.1 Solitary pulmonary nodule; E11.9 Type 2 diabetes mellitus without complications; K21.9 Gastro-esophageal reflux disease without esophagitis
CPT/HCPCS: 36415; 51702; 74176; 80053; 81001; 85025

== ENCOUNTER 2017-03-23 20:16 | Emergency (ER) | payer MEDICARE ==
--- NOTE | 2017-03-24 00:15 | Emergency Department Report ---
ED Male HPI - General Chief complaint: Abdominal Pain Stated complaint: CAN'T PEE Time Seen by Provider: 03/24/17 00:08 Source: patient, family Mode of arrival: Ambulatory Limitations: No Limitations, Language Barrier - History of Present Illness Initial comments: 77-year-old male seen here on March 19 had Lisa catheter placed for urinary retention. Patient was discharged on Flomax and Cipro. He also underwent imaging which show no hydronephrosis but he did have pulmonary nodules worrisome for metastatic disease. Patient is back today after apparently seeing his PCP where they removed the Lisa and tonight he is unable to urinate. Temp was afebrile blood pressure pulse respirations saturation were normal, no fever no n/v no back pain, no other c/o, x urinary retention, no fever no back pain -: unknown Severity: mild, moderate Improves with: none Worsens with: none denies other symptoms, discharge, urinary retention. denies: rash, fever, nausea/vomiting - Related Data Home Medications Medication Instructions Recorded Confirmed Last Taken Amlodipine Besylate [Amlodipine 5 mg PO DAILY 04/13/16 03/19/17 06/30/16 Besylate] Lisinopril/Hydrochlorothiazide 1 tab PO QDAY 04/13/16 03/19/17 06/30/16 [Zestoretic 20-25 mg] Metformin HCl [Metformin HCl] 850 mg PO BID 04/13/16 03/19/17 06/30/16 Omeprazole (Nf) [PriLOSEC (Nf)] 20 mg PO DAILY 04/13/16 03/19/17 06/30/16 Cyclobenzaprine [Flexeril] 10 mg PO QHS 03/19/17 03/19/17 Unknown Tamsulosin [Flomax] 0.4 mg PO QDAY 03/19/17 03/19/17 Unknown traMADol [Ultram] 50 mg PO Q8H PRN 03/19/17 03/19/17 Unknown Previous Rx's Medication Instructions Recorded Last Taken Type Ciprofloxacin HCl [Cipro] 500 mg PO BID #6 tablet 03/20/17 Unknown Rx Allergies Allergy/AdvReac Type Severity Reaction Status Date / Time No Known Allergies Allergy Verified 06/29/16 17:48 ED Review of Systems ROS: Stated complaint: CAN'T PEE Other details as noted in HPI Comment: All other systems reviewed and negative Constitutional: no symptoms reported. denies: diaphoresis, fever, malaise Respiratory: no symptoms reported. denies: cough, orthopnea, shortness of breath, SOB with exertion, SOB at rest, stridor, wheezing Cardiovascular: denies: chest pain, palpitations, dyspnea on exertion, orthopnea , edema, syncope, paroxysmal nocturnal dyspnea Gastrointestinal: abdominal pain. denies: nausea, vomiting, diarrhea, constipation, hematemesis, melena, hematochezia Genitourinary: other (urinary retention) Musculoskeletal: denies: back pain, joint swelling Skin: denies: change in color, change in hair/nails, pruritus Neurological: denies: headache, weakness, numbness, paresthesias, confusion, abnormal gait, vertigo Hematological/Lymphatic: denies: easy bruising, swollen glands ED Past Medical Hx - Past Medical History Previous Medical History?: Yes Hx Hypertension: Yes (3-4 yrs) Hx Diabetes: Yes ("prediabetic") Hx GERD: Yes Hx HIV: No - Surgical History Past Surgical History?: No - Social History Smoking Status: Never Smoker Substance Use Type: None - Medications Home Medications: Home Medications Medication Instructions Recorded Confirmed Last Taken Type Amlodipine Besylate [Amlodipine 5 mg PO DAILY 04/13/16 03/19/17 06/30/16 History Besylate] Lisinopril/Hydrochlorothiazide 1 tab PO QDAY 04/13/16 03/19/17 06/30/16 History [Zestoretic 20-25 mg] Metformin HCl [Metformin HCl] 850 mg PO BID 04/13/16 03/19/17 06/30/16 History Omeprazole (Nf) [PriLOSEC (Nf)] 20 mg PO DAILY 04/13/16 03/19/17 06/30/16 History Cyclobenzaprine [Flexeril] 10 mg PO QHS 03/19/17 03/19/17 Unknown History Tamsulosin [Flomax] 0.4 mg PO QDAY 03/19/17 03/19/17 Unknown History traMADol [Ultram] 50 mg PO Q8H PRN 03/19/17 03/19/17 Unknown History Ciprofloxacin HCl [Cipro] 500 mg PO BID #6 tablet 03/20/17 Unknown Rx ED Physical Exam - General Limitations: No Limitations, Language Barrier General appearance: alert, in no apparent distress - Head Head exam: Present: atraumatic, normocephalic - Eye Eye exam: Present: PERRL, EOMI - ENT ENT exam: Present: normal exam, normal orophraynx - Neck Neck exam: Present: normal inspection. Absent: tenderness, meningismus - Respiratory Respiratory exam: Present: normal lung sounds bilaterally. Absent: respiratory distress, wheezes, rales, rhonchi, stridor, chest wall tenderness, accessory muscle use, decreased breath sounds, prolonged expiratory - Cardiovascular Cardiovascular Exam: Present: regular rate, normal rhythm, normal heart sounds - GI/Abdominal GI/Abdominal exam: Present: soft, distended, other (bladder mass in the pelvis and no rebound or guarding). Absent: pulsatile mass - Extremities Exam Extremities exam: Present: normal inspection, normal capillary refill. Absent: tenderness, pedal edema, joint swelling, calf tenderness - Back Exam Back exam: Present: normal inspection. Absent: tenderness, CVA tenderness (R), CVA tenderness (L), muscle spasm, paraspinal tenderness, vertebral tenderness - Neurological Exam Neurological exam: Present: alert, CN II-XII intact, other (awake and alert does not speak [place]zeri eyes open follows commands). Absent: motor sensory deficit - Skin Skin exam: Absent: diaphoretic, erythema, urticaria, vesicles, petechiae ED Course Vital Signs 03/23/17 03/23/17 03/24/17 20:33 20:51 01:02 Temperature 98.6 F 98.6 F 98.3 F Pulse Rate 82 82 82 Respiratory 16 16 18 Rate Blood Pressure 127/71 127/71 122/72 O2 Sat by Pulse 99 99 97 Oximetry - Reevaluation(s) Reevaluation #1: 03/24/17 01:30 Full catheter was replaced with good urine output., approximately one liter removed, pt w/o tachycardia or hypotension 03/24/17 01:31 ED Medical Decision Making - Medical Decision Making Patient had normal renal function and laboratory on previous visit. Urinalysis was ordered and culture was sent patient is awake alert oriented 3 tolerating by mouth nontoxic abdomen is soft. He was observed for a postobstructive diuresis without symptoms of this. He had good stable vital signs and he was observed greater than an hour in the ED. He was therefore felt to be stable for discharge. We will go ahead and give him a leg bag he will need to see urology. I did re-informed the family that on the previous visit that he had noted pulmonary nodules. The Azeri speaking family member was present at this visit he is aware of this he was informed that he needs to go to medical record and obtained these records and follow-up with their regular doctor and/ or a offal trimmer family did verbalize the understanding of this they are verbalizing understanding of pulmonary nodules that will need further follow- up. However the urinary retention is resolved at this point time with repeat serial vital signs. No evidence of a postobstructive diuresis. His right first toe for outpatient follow-up Critical care attestation.: If time is entered above; I have spent that time in minutes in the direct care of this critically ill patient, excluding procedure time. ED Disposition Clinical Impression: Urinary retention, Acute urinary retention, Pulmonary nodule Disposition: TO HOME OR SELFCARE Is pt being admited?: No Condition: Stable Instructions: Urinary Retention in Men (ED), Pulmonary Nodules (ED) Additional Instructions: Return immediately if new alarming symptoms see the doctor listed continue your current medicines Referrals: NICO GARCIA MD [Primary Care Provider] - 3-5 Days MELISSA MEJIA MD [Staff Physician] - 2-3 Days Time of Disposition: 01:35
[2017-03-24 01:06] VITALS: BP 122/72
== END 2017-03-24 01:46 | disposition home or self-care (01) ==
LOC: ED 20:16
DX: R33.9 Retention of urine, unspecified (principal); J98.4 Other disorders of lung; E11.9 Type 2 diabetes mellitus without complications; K21.9 Gastro-esophageal reflux disease without esophagitis
CPT/HCPCS: 51702

== ENCOUNTER 2017-05-05 09:56 | Outpatient (CLI) | payer MEDICARE ==
[2017-05-05 10:47] LABS: Hemoglobin 13.9 gm/dl (11.8-15.2); Mean Corpuscular HGB Conc 32 % (32-34); Mean Corpuscular Hemoglobin 31 pg (28-32); Mean Corpuscular Volume 96 fl (84-94); Platelet Count 341 K/mm3 (140-440); Red Blood Count 4.49 M/mm3 (3.65-5.03); Red Cell Distribution Width 14.5 % (13.2-15.2)
[2017-05-05 11:12] LABS: Alanine Aminotransferase 7 units/L (7-56); Albumin 3.7 g/dL (3.9-5); BUN/Creatinine Ratio 14; Blood Urea Nitrogen 13 mg/dL (9-20); Calcium 9.3 mg/dL (8.4-10.2); Chol/HDL Ratio 4.25 %; HDL Cholesterol 44 mg/dL (40-59); Hemolysis Index 5; LDL Cholesterol,Direct 123 mg/dL (50-130)
--- NOTE | 2017-05-06 09:31 | Cat Scan Report ---
FINAL REPORT EXAM: CT CHEST WO CON HISTORY: LUNG NODULE TECHNIQUE: A CT of the chest was performed from thoracic inlet to diaphragm. No IV contrast was administered. Reformatted images were obtained. PRIORS: 03/19/2017 FINDINGS: There is an ascending aortic aneurysm measuring 4.5 cm diameter. There is no significant mediastinal or hilar mass seen. There are no pleural effusions seen. There is a masslike density in the posterior aspect of the left lower lobe measuring 3.0 x 1.2 cm. Most likely this is an area of airspace disease or round atelectasis. Overall opacity is more well-defined and smaller as compared to previous. Previously seen patchy airspace disease in the left lower lobe has improved. There are now some air containing cystic areas which communicate with the bronchi. This appearance is concerning for cystic bronchiectasis. There are several additional masslike densities in the left lower lobe. These measure 1.3 cm series 3, image 88 and 9 mm series 3, image 105. Smaller nodular areas are also present. Previously seen nodules in the right lower lobe are suboptimally visualized/evaluated due to breathing motion. There probably unchanged. There is no pneumothorax seen. There are no pleural effusions seen. IMPRESSION: There is cystic bronchiectasis in the left lower lobe. Airspace disease is masslike densities in the left lower lobe are persistent but improved. There are several nonspecific nodules in the left lower lobe as well. Right lower lobe nodules are suboptimally evaluated due to breathing motion but are probably not changed. Findings are nonspecific. Some of the findings are probably infectious/inflammatory. Pulmonary nodules could represent metastatic disease. Correlate clinically and with history.
== END 2017-05-05 09:57 | disposition home or self-care (01) ==
LOC: CT 09:56
PROVIDERS: ATTEND Internal Medicine
DX: J47.9 Bronchiectasis, uncomplicated (principal); R91.8 Other nonspecific abnormal finding of lung field; I10 Essential (primary) hypertension; E11.9 Type 2 diabetes mellitus without complications; Z79.899 Other long term (current) drug therapy
CPT/HCPCS: 36415; 71250; 80053; 80061; 84436; 84443; 85027

== ENCOUNTER 2018-11-03 11:00 | Outpatient (CLI) | payer MEDICARE | END 2018-11-03 11:01 | disposition home or self-care (01) | LOC: LAB 11:00 | PROVIDERS: ATTEND Internal Medicine | DX: E11.9 Type 2 diabetes mellitus without complications (principal); I10 Essential (primary) hypertension | CPT/HCPCS: 88112; 88312 ==

== ENCOUNTER 2018-11-09 11:16 | Outpatient (CLI) | payer MEDICARE ==
--- NOTE | 2018-11-09 15:48 | PET Report ---
PET/CT HISTORY: R91.8. Bilateral pulmonary nodules. Restaging of lung cancer. TECHNIQUE: The patient's fasting blood glucose was 116. The patient weighed 120 lbs. The patient w as injected with 15.2 mCi of FDG in the right antecubital fossa at 1218 hours and imaging was started at 1309 hours. The patient was imaged from the skull base to the thighs. All CT scans at this [facility], located within [facility] are performed using CT dose reduction for ALARA by means of automated exposure control. COMPARISON: PET/CT dated 01/26/2018 FINDINGS: FDG findings: The cavitary lesion in the left lower lobe appears stable in size measuring approximat marilyn 5.8 x 2.2 cm in axial plane. This cavitary lesion demonstrates a smooth slightly thickened border . Max SUV has increased slightly from 4.1 to 5.2. Surrounding reticulonodular densities remain hypome tabolic. A 10 mm right lower lobe nodule has decreased to 7 mm and remains hypometabolic. A second ri ght lower lobe nodule has decreased from 8 mm to 6 mm and remains hypometabolic. No new areas of hype rmetabolic activity or suspicious pulmonary lesions are identified. Non-FDG findings: The imaged brain remains unremarkable. No cervical mass or adenopathy has develope d. Heart and mediastinal structures remain unremarkable. No thoracic adenopathy has developed. The liver, biliary system, pancreas, spleen, adrenal glands, kidneys, bowel loops, appendix and bladd er are unremarkable. No new visceral mass or abdominal adenopathy is noted The bony structures are demineralized but intact. No suspicious bony lesion is appreciated. IMPRESSION: No overwhelming change is demonstrated since 01/26/2018 exam. The cavitary lesion in the left lower lobe appears stable in size and contour although there is minimal increase in metabolic ac tivity as outlined above. Millimetric pulmonary nodules in the right lower lobe have decreased in siz e and remain hypermetabolic. No new areas of disease are identified since the previous exam. Signer Name: Simon Ring Jr, MD Signed: 11/09/2018 3:43 PM Workstation Name: [id number]
== END 2018-11-09 11:17 | disposition home or self-care (01) ==
LOC: PET 11:16
PROVIDERS: ATTEND Internal Medicine
DX: R91.8 Other nonspecific abnormal finding of lung field (principal)
CPT/HCPCS: 78815; 82962; A9552